=== PATIENT | female | born 1955 | race Caucasian/White ===

== ENCOUNTER → 2018-05-21 | Outpatient (CLI) | payer BC | LOC: COL.RAD 14:55 | DX: E04.1 Nontoxic single thyroid nodule (principal) ==

== ENCOUNTER → 2018-06-23 | Outpatient (CLI) | payer BC ==
[~2018-06-23] VITALS: Ht 167.6 cm; Wt 98.6 kg
[~2018-06-23] MED LIST: CLARITIN 1010 MG/TAB PO; LEVOXYL0.1 MG PO; VALIUM 10MG10 MG/TAB PO
[2018-06-23 09:01] VITALS: BP 124/80; PULSE 70
[2018-06-23 10:55] VITALS: BP 151/92; PULSE 64
== END ==
LOC: COL.RAD 06-04 09:45
DX: E04.2 Nontoxic multinodular goiter (principal)

== ENCOUNTER 2018-08-04 07:08 | Day surgery (SDC) | payer BC ==
[~2018-08-04] VITALS: Ht 167.6 cm; Wt 96.6 kg
[2018-08-04 07:23] VITALS: BP 131/76; PULSE 78; TEMP 97.3
[2018-08-04] MEDS ORDERED: TIROSINT50 MC1 PO (07:26)
[2018-08-04 09:10] VITALS: BP 108/73; PULSE 77; TEMP 97.6
[2018-08-04 09:25] VITALS: BP 96/73; PULSE 68
[2018-08-04 09:40] VITALS: BP 108/83; PULSE 71
[2018-08-04 09:55] VITALS: BP 109/74; PULSE 66
== END 2018-08-04 10:11 | disposition home or self-care (01) ==
LOC: SDCO 07:08
DX: Z12.11 Encounter for screening for malignant neoplasm of colon (principal); D12.3 Benign neoplasm of transverse colon; K63.5 Polyp of colon; K64.0 First degree hemorrhoids; E03.9 Hypothyroidism, unspecified; Z96.651 Presence of right artificial knee joint
CPT/HCPCS: J2250; J3010; J7030

== ENCOUNTER → 2019-04-26 | Outpatient (CLI) | payer BC ==
[~2019-04-26] MED LIST changes: +TIROSINT50 MC1 PO
== END ==
LOC: COL.RAD 08:57
DX: S43.431A Superior glenoid labrum lesion of right shoulder, initial encounter (principal)
CPT/HCPCS: J3301; Q9967

== ENCOUNTER 2019-06-21 09:35 | Emergency (ER) | payer BC ==
[~2019-06-21] VITALS: Ht 167.6 cm; Wt 100.0 kg
[2019-06-21 09:50] VITALS: TEMP 98.6
[2019-06-21 10:37] LABS: BASO % 0.6 % (0.0-2.0); EOS % 0.8 % (0-4.0); GRAN # 3.5 (1.4-6.5); GRAN % 71.4 % (42.2-75.2); HEMATOCRIT 46.6 % (37.0-47.0); HEMOGLOBIN 15.4 g/dl (12.5-16.0); MEAN CELL VOLUME 97 fl (80.0-100.0); MEAN CORPUSCULAR HEMOGLOBIN 32 pg (27.0-31.0); MEAN CORPUSCULAR HGB CONC 33 g/dl (33.0-37.0); MEAN PLATELET VOLUME 10.5 fl (7.4-10.4); MONO # 0.3 (0.1-0.6); PLATELET COUNT 179 K/mm3 (130-400); RED BLOOD COUNT 4.81 M/mm3 (4.10-5.30); REDCELL DISTRIBUTION WIDTH-CV 12.5 % (11.5-14.5)
[2019-06-21 10:40] LABS: PROTHROMBIN TIME 11.4 SECONDS (9.7-12.8)
[2019-06-21 10:42] LABS: ALANINE AMINOTRANSFERASE 60 U/L (9-52); ALBUMIN 4.3 gm/dL (3.5-5.0); ALKALINE PHOSPHATASE 65 U/L (50-136); ANION GAP 10 mmol/L (7-16); AST,SGOT 37 U/L (15-37); BILIRUBIN,TOTAL 0.6 mg/dL (0.0-1.0); BLOOD UREA NITROGEN 12 mg/dL (7-17); CALCIUM 8.9 mg/dL (8.4-10.2); CARBON DIOXIDE 24 mmol/L (22-30); CHLORIDE 107 mmol/L (98-107); CREATININE, serum 0.55 (0.52-1.25); GLUCOSE 163 mg/dL (74-106); PARTIAL THROMBOPLASTIN TIME 30.3 SECONDS (26.0-37.0); POTASSIUM 3.7 mmol/L (3.4-5.0); SODIUM 141 mmol/L (137-145); TOTAL PROTEIN 6.9 gm/dL (6.4-8.2)
[2019-06-21 10:55] LABS: TROPONIN-I < 0.012 ng/mL (0.000-0.035)
[2019-06-21] MEDS ORDERED: BONINE25 MG PO (12:09)
[2019-06-21 12:21] VITALS: BP 119/81; PULSE 62
== END 2019-06-21 12:21 | disposition home or self-care (01) ==
LOC: COL.ER 09:35
PROVIDERS: Family Medicine
DX: R42 Dizziness and giddiness (principal)

== ENCOUNTER → 2019-07-21 | Outpatient (CLI) | payer BC ==
[~2019-07-21] MED LIST changes: +BONINE25 MG PO
== END ==
LOC: MC.RAD 13:09
DX: Z12.31 Encounter for screening mammogram for malignant neoplasm of breast (principal)

== ENCOUNTER 2019-12-24 21:19 | Emergency (ER) | payer BC ==
[~2019-12-24] VITALS: Ht 167.6 cm; Wt 100.0 kg
[2019-12-24 21:25] VITALS: BP 141/77
[2019-12-24 21:32] VITALS: TEMP 97.7
[2019-12-24 22:16] LABS: BASO % 0.6 % (0.0-2.0); EOS # 0.1 (0.0-0.7); EOS % 2.6 % (0-4.0); GRAN # 3.4 (1.4-6.5); GRAN % 72.8 % (42.2-75.2); HEMATOCRIT 46.1 % (37.0-47.0); HEMOGLOBIN 15.1 g/dl (12.5-16.0); LYMPH # 0.6 (1.2-3.4); LYMPH % 13.5 % (20.0-51.0); MEAN CELL VOLUME 96 fl (80.0-100.0); MEAN CORPUSCULAR HEMOGLOBIN 31 pg (27.0-31.0); MEAN CORPUSCULAR HGB CONC 33 g/dl (33.0-37.0); MEAN PLATELET VOLUME 10.8 fl (7.4-10.4); MONO # 0.5 (0.1-0.6); MONO % 10.3 % (1.7-9.3); PLATELET COUNT 159 K/mm3 (130-400); RED BLOOD COUNT 4.82 M/mm3 (4.10-5.30); REDCELL DISTRIBUTION WIDTH-CV 12.6 % (11.5-14.5)
[2019-12-24 22:44] LABS: ALBUMIN 4.2 gm/dL (3.5-5.0); BILIRUBIN,TOTAL 0.6 mg/dL (0.0-1.0); C-REACTIVE PROTEIN 2.4 mg/dL (0.0-0.9); CALCIUM 8.8 mg/dL (8.4-10.2); CREATININE, serum 0.65 (0.52-1.25); TOTAL PROTEIN 6.9 gm/dL (6.4-8.2)
[2019-12-24] MEDS ORDERED: TAMIFLU 75MG75 MG PO (22:55)
[2019-12-24] MEDS ORDERED: TUSS PO (22:55)
[2019-12-24 23:20] VITALS: PULSE 81
== END 2019-12-24 23:20 | disposition home or self-care (01) ==
LOC: COL.ER 21:19
PROVIDERS: Emergency Medicine
DX: J10.1 Influenza due to other identified influenza virus with other respiratory manifestations (principal)
CPT/HCPCS: J7030

== ENCOUNTER 2021-11-12 08:20 | Emergency (ER) | payer BC ==
[~2021-11-12] VITALS: Ht 167.6 cm; Wt 95.5 kg
[~2021-11-12 08:20] MED LIST changes: +TAMIFLU 75MG75 MG PO; +TUSS PO
[2021-11-12] MEDS ORDERED: NORCO 325 MG-51 TAB PO (08:49)
[2021-11-12] MEDS ORDERED: FLEXERIL 1010 MG/TAB PO (08:49)
[2021-11-12 09:00] VITALS: BP 151/89; PULSE 81
== END 2021-11-12 09:00 | disposition home or self-care (01) ==
LOC: COL.ER 08:20
DX: M54.2 Cervicalgia (principal); E03.9 Hypothyroidism, unspecified; Z87.39 Personal history of other diseases of the musculoskeletal system and connective tissue; Z79.890 Hormone replacement therapy
CPT/HCPCS: J1885

== ENCOUNTER → 2021-12-18 | Outpatient (CLI) | payer BC ==
[~2021-12-18] MED LIST changes: +FLEXERIL 1010 MG/TAB PO; +NORCO 325 MG-51 TAB PO
== END ==
LOC: MHCPAIN 14:22
DX: M47.812 Spondylosis without myelopathy or radiculopathy, cervical region (principal); M54.12 Radiculopathy, cervical region; M25.511 Pain in right shoulder; G89.29 Other chronic pain
CPT/HCPCS: G0463

== ENCOUNTER → 2021-12-20 | Outpatient (CLI) | payer BC | LOC: MHCPAIN 08:27 | DX: M47.812 Spondylosis without myelopathy or radiculopathy, cervical region (principal); M54.12 Radiculopathy, cervical region | CPT/HCPCS: J1100; Q9967 ==

== ENCOUNTER → 2022-01-08 | Outpatient (CLI) | payer BC | LOC: MHCPAIN 09:21 | DX: M47.812 Spondylosis without myelopathy or radiculopathy, cervical region (principal); M54.12 Radiculopathy, cervical region; M48.02 Spinal stenosis, cervical region; M25.511 Pain in right shoulder | CPT/HCPCS: G0463 ==

== ENCOUNTER → 2022-01-24 | Outpatient (CLI) | payer BC | LOC: MHCPAIN 08:31 | DX: M47.812 Spondylosis without myelopathy or radiculopathy, cervical region (principal); M54.12 Radiculopathy, cervical region | CPT/HCPCS: J0461; J1100; Q9967 ==

== ENCOUNTER → 2022-02-13 | Outpatient (CLI) | payer BC | LOC: MHCPAIN 09:27 | DX: M47.812 Spondylosis without myelopathy or radiculopathy, cervical region (principal); M54.12 Radiculopathy, cervical region; M25.511 Pain in right shoulder | CPT/HCPCS: G0463 ==

== ENCOUNTER → 2022-02-15 | Outpatient (CLI) | payer BC | LOC: COL.RAD 02-14 10:15 | DX: M25.511 Pain in right shoulder (principal) | CPT/HCPCS: J3301; Q9967 ==

== ENCOUNTER → 2022-02-28 | Outpatient (CLI) | payer BC | LOC: MHCPAIN 09:35 | DX: M47.812 Spondylosis without myelopathy or radiculopathy, cervical region (principal); M54.12 Radiculopathy, cervical region | CPT/HCPCS: J0461; J1100; Q9967 ==

== ENCOUNTER → 2022-04-09 | Outpatient (CLI) | payer BC | LOC: MHCPAIN 11:13 | DX: M54.12 Radiculopathy, cervical region (principal); R20.2 Paresthesia of skin; M25.511 Pain in right shoulder; M47.812 Spondylosis without myelopathy or radiculopathy, cervical region | CPT/HCPCS: G0463 ==

== ENCOUNTER → 2023-02-13 | Outpatient (CLI) | payer BC | LOC: MHCPAIN 12:42 | DX: M47.812 Spondylosis without myelopathy or radiculopathy, cervical region (principal); M54.12 Radiculopathy, cervical region; M54.2 Cervicalgia | CPT/HCPCS: J0461; J1100; Q9967 ==

== ENCOUNTER → 2023-07-31 | Outpatient (CLI) | payer BC | LOC: MHCPAIN 09:19 | DX: M47.817 Spondylosis without myelopathy or radiculopathy, lumbosacral region (principal); M54.50 Low back pain, unspecified | CPT/HCPCS: J0665 ==

== ENCOUNTER → 2023-10-21 | Outpatient (CLI) | payer BC | LOC: MC.RAD 08:24 | DX: Z12.31 Encounter for screening mammogram for malignant neoplasm of breast (principal) ==

== ENCOUNTER → 2023-11-24 | Outpatient (CLI) | payer BC | LOC: COL.RAD 07:44 | DX: E27.8 Other specified disorders of adrenal gland (principal); K30 Functional dyspepsia; R74.8 Abnormal levels of other serum enzymes ==

== ENCOUNTER → 2023-11-26 | Outpatient (CLI) | payer BC ==
[~2023-11-26] MED LIST changes: +Sincalide 2 MCG in NS 13 ML IV SCH
== END ==
LOC: COL.RAD 09:36
DX: K30 Functional dyspepsia (principal); R74.8 Abnormal levels of other serum enzymes
CPT/HCPCS: A9537-JZ; J2805

== ENCOUNTER → 2024-07-26 | Outpatient (CLI) | payer BC ==
[~2024-07-26] MED LIST changes: +Lidocaine PF 2% (20 MG/ML) 5 ML VIAL ONE; +Midazolam 2 MG/2 ML VIAL ONE; -Sincalide 2 MCG in NS 13 ML IV SCH; +fentaNYL 50 MCG/ML 2 ML VIAL ONE
== END ==
LOC: MHCPAIN 08:40
DX: M47.816 Spondylosis without myelopathy or radiculopathy, lumbar region (principal); M48.07 Spinal stenosis, lumbosacral region; M54.50 Low back pain, unspecified; M54.2 Cervicalgia; M25.512 Pain in left shoulder; E03.9 Hypothyroidism, unspecified
CPT/HCPCS: G0463; J0665; J2250; J3010

== ENCOUNTER 2024-08-15 20:45 | Emergency (ER) | payer BC ==
[~2024-08-15] VITALS: Ht 165.1 cm; Wt 100.0 kg
[~2024-08-15 20:45] MED LIST changes: -Lidocaine PF 2% (20 MG/ML) 5 ML VIAL ONE; -Midazolam 2 MG/2 ML VIAL ONE; -fentaNYL 50 MCG/ML 2 ML VIAL ONE
[2024-08-15 21:15] LABS: BASO % 0.5 % (0.0-2.0); EOS # 0.1 K/mm3 (0.0-0.7); EOS % 2.3 % (0.0-4.0); GRAN # 3.1 K/mm3 (1.4-6.5); GRAN % 56.4 % (42.2-75.2); HEMATOCRIT 45.2 % (37.0-47.0); HEMOGLOBIN 15.2 g/dl (12.5-16.0); LYMPH # 1.9 K/mm3 (1.2-3.4); LYMPH % 33.9 % (20.0-51.0); MEAN CELL VOLUME 94 fl (80.0-100.0); MEAN CORPUSCULAR HEMOGLOBIN 32 pg (27-31); MEAN CORPUSCULAR HGB CONC 34 g/dl (33.0-37.0); MEAN PLATELET VOLUME 10.7 fl (7.4-10.4); MONO # 0.4 K/mm3 (0.1-0.6); MONO % 6.7 % (1.7-9.3); PLATELET COUNT 192 K/mm3 (130-400); REDCELL DISTRIBUTION WIDTH-CV 12.8 % (11.5-14.5)
[2024-08-15] MEDS ORDERED: NS 1,000 ML IV ONE (21:15)
[2024-08-15 21:38] LABS: BILIRUBIN,TOTAL 0.5 mg/dL (0.2-1.2); C-REACTIVE PROTEIN 0.61 mg/dL (0.00-0.50); CALCIUM 9.1 mg/dL (8.4-10.2); CREATININE, serum 0.73 mg/dL (0.57-1.11); POTASSIUM 3.9 mEq/L (3.5-4.5); TOTAL PROTEIN 6.8 g/dl (6.2-8.1)
[2024-08-15 22:12] LABS: COLLECTION METHOD CLEAN CATCH
[2024-08-15 22:17] LABS: URINE APPEARANCE CLEAR (CLEAR/HAZY); URINE BLOOD NEGATIVE (NEGATIVE); URINE COLOR YELLOW (YELLOW); URINE GLUCOSE NEGATIVE (NEGATIVE); URINE KETONE NEGATIVE (NEGATIVE); URINE NITRATE NEGATIVE (NEGATIVE); URINE PROTEIN(semi-quant) NEGATIVE (NEGATIVE); URINE UROBILINOGEN 0.2 E.U/dL (0.2-1.0)
[2024-08-15] MEDS ORDERED: Iohexol 300 - 100 ML VIAL IV ONE (23:03)
[2024-08-15] MEDS ORDERED: NS 50 ML IV ONE (23:04)
[2024-08-15] MEDS ORDERED: FLEXERIL 1010 MG/TAB PO (23:59)
[2024-08-16 00:31] VITALS: BP 171/90; PULSE 68; TEMP 98.5
== END 2024-08-16 00:31 | disposition home or self-care (01) ==
LOC: COL.ER 20:45
PROVIDERS: Nurse Practitioner
DX: R10.31 Right lower quadrant pain (principal)
CPT/HCPCS: J7030; Q9967

== ENCOUNTER → 2024-08-16 | Outpatient (CLI) | payer BC | LOC: COL.RAD 06:33 | DX: K76.9 Liver disease, unspecified (principal) ==